=== PATIENT | male | born 1980 | race Two or more races ===

== ENCOUNTER 2022-01-28 16:00 | Inpatient (IN) | payer MEDICAID, OTHER ==
[~2022-01-28] VITALS: Ht 172.7 cm; Wt 52.2 kg
--- NOTE | 2022-01-28 16:01 | NUR ---
TO ER BED 7, MAXWELL Diaz FROM [facility],SUPPOSED TO GO TO [facility] BUT [facility] ARRIVED, BP WAS 80/60, FACILITY THEN CALLED 911, NONVERBAL, CONNECTED TO MONITOR, AWAITING MD ORDERS
--- NOTE | 2022-01-28 16:45 | NUR ---
COVID SWAB DONE AND SENT TO LAB
--- NOTE | 2022-01-28 16:45 | NUR ---
URINE COLLECTED AND SENT TO LAB
[2022-01-28] MEDS ORDERED: ASPI-1169 GT (17:23)
[2022-01-28] MEDS ORDERED: INSU100I4 SQ (17:23)
[2022-01-28] MEDS ORDERED: DOCU-141 GT (17:23)
[2022-01-28] MEDS ORDERED: PANT40TA49 PO (17:23)
[2022-01-28] MEDS ORDERED: ATOR20TA GT (17:23)
[2022-01-28] MEDS ORDERED: METO50TA16 GT (17:23)
[2022-01-28] MEDS ORDERED: CLOP75TA15 GT (17:23)
[2022-01-28] MEDS ORDERED: DIVA-78 GT ×2 (17:23)
[2022-01-28] MEDS ORDERED: LACT-209 GT (17:23)
[2022-01-28] MEDS ORDERED: MIDO5TAB4 GT (17:23)
[2022-01-28] MEDS ORDERED: POLY17PO4 GT (17:23)
[2022-01-28 17:33] LABS: BASOPHILS % (AUTO) 0.5 % (0.0-2.0); EOSINOPHILS % (AUTO) 1.1 % (0.0-6.0); HEMATOCRIT 34 % (39-51); HEMOGLOBIN 11.2 g/dL (13.5-17.5); LYMPHOCYTES # (AUTO) 1.6 K/uL (0.8-4.8); MEAN CORPUSCULAR HGB CONC 33 g/dl (31.0-36.0); MEAN CORPUSCULAR VOLUME 94 fL (80-96); MONOCYTES # (AUTO) 0.3 K/uL (0.1-1.30); MONOCYTES % (AUTO) 8.5 % (2.0-12.0); NEUTROPHILS # (AUTO) 1.9 K/uL (1.8-8.9); NEUTROPHILS % (AUTO) 48.9 % (43.0-81.0); PLATELET COUNT (AUTO) 128 K/uL (150-450); RED BLOOD CELL COUNT(AUTO) 3.65 MIL/uL (4.5-6.0); WHITE BLOOD COUNT (AUTO) 3.9 K/uL (4.3-11.0)
[2022-01-28 17:56] LABS: BILIRUBIN,URINE NEGATIVE (NEGATIVE); COLOR,URINE YELLOW (YELLOW); LEUKOCYTE ESTERASE ,URINE NEGATIVE (NEGATIVE); NITRITE, URINE NEGATIVE (NEGATIVE); PROTEIN,URINE TRACE mg/dl (NEGATIVE); UGLUCOSE NEGATIVE (NEGATIVE)
[2022-01-28 18:00] LABS: ALANINE AMINOTRANSFERASE 24 U/L (12-78); ALBUMIN 3.7 g/dL (3.4-5.0); ALKALINE PHOSPHATASE 62 U/L (46-116); ASPARTATE AMINOTRANSFERASE 19 U/L (15-37); BILIRUBIN,DIRECT 0.1 mg/dL (0.0-0.2); BILIRUBIN,TOTAL 0.2 mg/dL (0.2-1.0); CALCIUM, SERUM 9.3 mg/dL (8.5-10.1); CARBON DIOXIDE 29 mmol/L (21-32); CHLORIDE 105 mmol/L (98-107); GLUCOSE 82 mg/dL (74-106); POTASSIUM 4.4 mmol/L (3.5-5.1); SODIUM SERUM 140 mmol/L (136-145); UREA NITROGEN, BLOOD 19 mg/dL (7-18)
[2022-01-28] MEDS ORDERED: IV NS 0.9% 1,000 ML BAG IV ONE (18:00)
--- NOTE | 2022-01-28 18:05 | NUR ---
CALLED NURSE SUPV FOR MIDLINE INSERTION
[2022-01-28 18:10] LABS: BACTERIA,URINE 1+ /HPF (None Seen); MUCUS,URINE Many /LPF (None Seen); RBC,URINE 21-50 /HPF (0-2); WBC,URINE 0-2 /HPF (0-3)
--- NOTE | 2022-01-28 18:57 | NUR ---
RECEIVED A CALL FROM JOSE WATTS FROM [facility], NURSE TO NURSE REPORT GIVEN AND THEY PRINCESS SET UP A PE[facility] PE[facility]. [facility] [phone].
[2022-01-28] MEDS ORDERED: ONDANSETRON HCL/PF 4 MG/2 ML VIAL IVP PRN (20:30)
[2022-01-28] MEDS ORDERED: ACETAMINOPHEN 325 MG TABLET PO PRN (20:30)
[2022-01-28] MEDS ORDERED: MIDODRINE HCL (5MG) 5 MG TABLET GT PRN (21:00)
[2022-01-28] MEDS ORDERED: JEVITY 1.2 CAL 1,000 ML BOTTLE GT SCH (21:00)
[2022-01-28 21:22] LABS: THYROID STIMULATING HORMONE 1.685 uIU/mL (0.358-3.74)
--- NOTE | 2022-01-28 21:30 | NUR ---
ESTABLISHED. L HAND #20G S/L IVF NS INFUSING GTUBE INTACT. TOLERATING R/A WELL WITH NO SOB. RESP EVEN AND NON LABORED
--- NOTE | 2022-01-28 22:41 | NUR ---
REPORT GIVEN TO CORAL Bravo RN FOR [place]
--- NOTE | 2022-01-28 22:44 | NUR ---
NOTIFIED CONNOR (MOTHER) [phone] OF PT'S ADMISION AND CURRENT CONDITION.
--- NOTE | 2022-01-28 22:59 | NUR ---
[facility] SWAB COLLECTED AND SENT TO LAB. PT TRANSFERRRING TO 3 VIA HOSPITAL PROTOCOL. VSS. ALL BELONGINGS WITH PT.
[2022-01-28 23:00] VITALS: BP 122/80
[2022-01-28] MEDS: ENOXAPARIN SODIUM 40 MG/0.4 ML DISP.SYRIN SQ SCH (23:39)
[2022-01-28] MEDS: ATORVASTATIN 10 MG TABLET PO SCH (23:39)
[2022-01-28] MEDS: DIVALPROEX SODIUM 500 MG TABLET.DR PO SCH (23:40)
--- NOTE | 2022-01-29 02:39 | NUR ---
ADMISSION NOTE PATIENT ARRIVED IN UNIT AT EXACTLY 2300. ACCOMPANIED BY 1 ER PERSONNEL VIA STRETCHER. PATIENT NOTED TO BE NON-VERBAL BUT FOLLOWS COMMANDS AND ALERT. NO S/S OF APPARENT DISTRESS IN ROOM AIR. DENIES PAIN NOR DISCOMFORT. IV ON L. HAND #20G--STARTED ON NS @75MLS/HR. PATIENT FAILED NURSING SWALLOW EVAL FOR PATIENT UNABLE TO CLENCH TEETH. NOTED TO HAVE G-TUBE IN PLACE-- STARTED ON JEVITY 1.2 @55MLS/HR. PATIENT PUT FULL CODE FOR NOW, PATIENT WAY OF COMMUNICATING IS BY NODDING. NEW ID BAND ON PATIENT. BELONGINGS SIGNED FOR AND INVENTORIED. SAFETY IN PLACE. ADMISSION V/S FOLLOWS: 122/80, HR-62, RR-18, T-96.4, SATURATION 97% ON ROOM AIR. WILL FOLLOW THROUGH DOCTOR'S ORDERS.
[2022-01-29 06:21] LABS: BASOPHILS % (AUTO) 0.7 % (0.0-2.0); EOSINOPHILS % (AUTO) 3.6 % (0.0-6.0); HEMATOCRIT 34 % (39-51); HEMOGLOBIN 11.1 g/dL (13.5-17.5); LYMPHOCYTES # (AUTO) 2.4 K/uL (0.8-4.8); LYMPHOCYTES % (AUTO) 61.8 % (20.0-44.0); MEAN CORPUSCULAR HGB CONC 33 g/dl (31.0-36.0); MEAN CORPUSCULAR VOLUME 94 fL (80-96); MONOCYTES # (AUTO) 0.3 K/uL (0.1-1.30); MONOCYTES % (AUTO) 8.1 % (2.0-12.0); NEUTROPHILS % (AUTO) 25.8 % (43.0-81.0); PLATELET COUNT (AUTO) 112 K/uL (150-450); RED BLOOD CELL COUNT(AUTO) 3.57 MIL/uL (4.5-6.0); WHITE BLOOD COUNT (AUTO) 3.9 K/uL (4.3-11.0)
--- NOTE | 2022-01-29 06:28 | NUR ---
MS RN CLOSING NOTE PATIENT IN BED, ALERT, EYE OPENING, NON-VERBAL. NO S/S OF APPARENT DISTRESS IN ROOM AIR. DENIES PAIN AT THIS TIME. IV NS RUNNING @75MLS/HR. G-TUBE FEEDING JEVITY 1.2 RUNNING @55MLS/HR. ALL NEEDS ATTENDED. ALL SCHEDULED MEDICATIONS ADMINISTERED. SAFETY KEPT IN PLACE. WILL ENDORSE TO MORNING SHIFT RN FOR CONTINUITY OF CARE.
[2022-01-29 06:49] LABS: CALCIUM, SERUM 8.7 mg/dL (8.5-10.1); CREATININE 0.8 mg/dL (0.6-1.3); POTASSIUM 3.7 mmol/L (3.5-5.1)
--- NOTE | 2022-01-29 07:30 | NUR ---
MS RN OPENING NOTES RECEIVED PATIENT ON BED AWAKE AND NON-VERBAL. ON ROOM AIR TOLERATING WELL. NO SOB NOTED. NOT IN DISTRESS. WITH IV ACCESS AT THE LEFT HAND G20 WITH NS AT 75ML/HR INFUSING WELL. ON JEVITY 1.2 AT 55ML/HR VIA G-TUBE TOLERATING WELL. WITH NO COMPLAINTS OF PAIN AT THIS TIME. SAFETY MEASURES IN PLACED. CALL LIGHT WITHIN REACH. BED ON LOWEST LOCKED POSITION, SIDE RAILS UP X2. WILL CONTINUE TO MONITOR.
[2022-01-29] MEDS: POLYETHYLENE GLYCOL 3350 17 GM POWD.PACK GT SCH (08:15)
[2022-01-29] MEDS: DOCUSATE SODIUM 100 MG CAPSULE PO SCH ×2 (08:15→16:19)
[2022-01-29] MEDS: DIVALPROEX SODIUM 500 MG TABLET.DR PO SCH ×2 (08:15→21:34)
[2022-01-29] MEDS: PANTOPRAZOLE 40 MG TABLET.DR PO SCH (08:15)
[2022-01-29] MEDS: CLOPIDOGREL BISULFATE 75 MG TABLET GT SCH (08:16)
[2022-01-29] MEDS: ASPIRIN 81 MG TAB.CHEW GT SCH (08:16)
[2022-01-29] MEDS ORDERED: PANTOPRAZOLE 40 MG VIAL IV SCH (09:00)
[2022-01-29] MEDS: IV NS 0.9% 1,000 ML IV PRN ×2 (10:23)
[2022-01-29] MEDS ORDERED: MIDODRINE HCL (5MG) 5 MG TABLET GT PRN (12:30)
[2022-01-29 16:00] VITALS: BP 112/78
--- NOTE | 2022-01-29 18:27 | NUR ---
MS RN CLOSING NOTES PATIENT ON BED AWAKE, A/O X1 AND NON-VERBAL. ON ROOM AIR TOLERATING WELL. NO SOB NOTED. NOT IN DISTRESS. WITH IV ACCESS AT THE LEFT HAND G20 WITH NS AT 75ML/HR INFUSING WELL. ON JEVITY 1.2 AT 55ML/HR VIA G-TUBE TOLERATING WELL. WITH NO COMPLAINTS OF PAIN AT THIS TIME. DUE MEDS GIVEN. SAFETY MEASURES IN PLACED. CALL LIGHT WITHIN REACH. BED ON LOWEST LOCKED POSITION, SIDE RAILS UP X2. WILL ENDORSE TO NEXT SHIFT FOR [place].
--- NOTE | 2022-01-29 19:41 | NUR ---
MS RN OPENING NOTES RECEIVED PATIENT ON BED AWAKED NON VERBAL.ON ROOM AIR TOLERATING WELL. NO SOB/DISTRESS NOTED.WITH IV ACCESS AT THE LEFT HAND G20 WITH NS AT 75ML/HR INFUSING WELL. ON JEVITY 1.2 AT 55ML/HR VIA G-TUBE TOLERATING WELL.NO RESIDUAL NOTED. WITH NO COMPLAINTS OF PAIN AT THIS TIME. SAFETY MEASURES IN PLACED. CALL LIGHT WITHIN REACH. BED ON LOWEST LOCKED POSITION, SIDE RAILS UP X2. WILL CONTINUE TO MONITOR.
[2022-01-29] MEDS: ATORVASTATIN 10 MG TABLET PO SCH (21:35)
[2022-01-29] MEDS: ENOXAPARIN SODIUM 40 MG/0.4 ML DISP.SYRIN SQ SCH (21:36)
[2022-01-29] MEDS: JEVITY 1.2 CAL 1,000 ML BOTTLE GT SCH (21:43)
[2022-01-30 02:50] VITALS: BP 132/76
[2022-01-30] MEDS: IV NS 0.9% 1,000 ML IV PRN (05:27)
--- NOTE | 2022-01-30 07:30 | NUR ---
MS RN OPENING NOTES RECEIVED PATIENT IN BED AWAKE, NON-VERBAL, A/O X1, ABLE TO MAKE NEEDS KNOWN BY POINTING AND NODDING TO YES OR NO QUESTION. PT ON ROOM AIR TOLERATING WELL. NO SOB NOTED. NOT IN DISTRESS. WITH IV ACCESS AT THE LEFT HAND G20 WITH NS AT 75ML/HR INFUSING WELL. ON JEVITY 1.2 AT 55ML/HR VIA G-TUBE TOLERATING WELL. WITH NO COMPLAINTS OF PAIN AT THIS TIME. SAFETY MEASURES IN PLACED. CALL LIGHT WITHIN REACH. BED ON LOWEST LOCKED POSITION, SIDE RAILS UP X2. WILL CONTINUE TO MONITOR.
[2022-01-30 08:00] VITALS: BP_SYST 107; BP_SYST 120; BP_DIAS 58; BP_DIAS 85
[2022-01-30] MEDS: CLOPIDOGREL BISULFATE 75 MG TABLET GT SCH (09:04)
[2022-01-30] MEDS: PANTOPRAZOLE 40 MG TABLET.DR PO SCH (09:04)
[2022-01-30] MEDS: ASPIRIN 81 MG TAB.CHEW GT SCH (09:04)
[2022-01-30] MEDS: DIVALPROEX SODIUM 500 MG TABLET.DR PO SCH ×2 (09:04→21:36)
[2022-01-30] MEDS: POLYETHYLENE GLYCOL 3350 17 GM POWD.PACK GT SCH (09:04)
[2022-01-30] MEDS: DOCUSATE SODIUM 100 MG CAPSULE PO SCH ×2 (09:04→16:56)
[2022-01-30 16:00] VITALS: BP 115/82
[2022-01-30 16:06] LABS: IRON, SERUM 41 ug/dl (50-175); TOTAL IRON BINDING CAPACITY 318 ug/dl (250-450)
[2022-01-30 16:16] LABS: FERRITIN 124 ng/mL (8-388)
[2022-01-30 16:25] LABS: C-REACTIVE PROTEIN < 0.2 mg/dL (0.0-0.9)
--- NOTE | 2022-01-30 19:49 | NUR ---
MS RN CLOSING NOTES PATIENT IN BED AWAKE, NON-VERBAL, A/O X1, ABLE TO MAKE NEEDS KNOWN BY POINTING AND NODDING TO YES OR NO QUESTION. PT ON ROOM AIR TOLERATING WELL. NO SOB NOTED. NOT IN DISTRESS. WITH IV ACCESS AT THE LEFT HAND G20 WITH NS AT 75ML/HR INFUSING WELL. ON JEVITY 1.2 AT 55ML/HR VIA G-TUBE TOLERATING WELL. WITH NO COMPLAINTS OF PAIN AT THIS TIME. SAFETY MEASURES IN PLACED. CALL LIGHT WITHIN REACH. BED ON LOWEST LOCKED POSITION, SIDE RAILS UP X2, ENDORSED TO PM SHIFT.
[2022-01-30 20:12] VITALS: BP 138/86
[2022-01-30] MEDS: ENOXAPARIN SODIUM 40 MG/0.4 ML DISP.SYRIN SQ SCH (21:35)
[2022-01-30] MEDS: ATORVASTATIN 10 MG TABLET PO SCH (21:36)
[2022-01-31] MEDS: JEVITY 1.2 CAL 1,000 ML BOTTLE GT SCH (03:42)
--- NOTE | 2022-01-31 07:27 | NUR ---
MS RN OPENING NOTES RECEIVED PT IN BED AWAKE. A/O X1 AND NON-VERBAL. REORIENTED PT NEEDED. ON RA, TOLERATING WELL. NO SOB NOTED. NOT IN ANY SIGN OF RESPIRATORY DISTRESS. PT'S G-TUBE INTACT WITH FEEDING OF JEVITY 1.2 RUNNING AT 55ML/HR. SAFETY MEASURES IN PLACE: BED IN LOWEST AND LOCKED POSITION, SIDE RAILS UP X3, BED ALARM ON, AND CALL LIGHT WITHIN REACH. WILL CONTINUE TO MONITOR PT.
[2022-01-31 08:00] VITALS: BP 122/78
[2022-01-31] MEDS: CLOPIDOGREL BISULFATE 75 MG TABLET GT SCH (08:33)
[2022-01-31] MEDS: DOCUSATE SODIUM 100 MG CAPSULE PO SCH ×2 (08:33→17:29)
[2022-01-31] MEDS: PANTOPRAZOLE 40 MG TABLET.DR PO SCH (08:33)
[2022-01-31] MEDS: DIVALPROEX SODIUM 500 MG TABLET.DR PO SCH ×2 (08:33→21:03)
[2022-01-31] MEDS: POLYETHYLENE GLYCOL 3350 17 GM POWD.PACK GT SCH (08:33)
[2022-01-31] MEDS: ASPIRIN 81 MG TAB.CHEW GT SCH (08:34)
--- NOTE | 2022-01-31 09:50 | NUR ---
RN NOTE SEEN BY DR. DONALDSON WITH ORDERS TO DC NS IV FLUIDS.
[2022-01-31 11:33] LABS: BASOPHILS % (AUTO) 0.5 % (0.0-2.0); NEUTROPHILS % (AUTO) 40.1 % (43.0-81.0)
[2022-01-31 11:38] LABS: EOSINOPHILS % (AUTO) 3.7 % (0.0-6.0); HEMATOCRIT 36 % (39-51); LYMPHOCYTES # (AUTO) 1.9 K/uL (0.8-4.8); MEAN CORPUSCULAR HGB CONC 33 g/dl (31.0-36.0); MEAN CORPUSCULAR VOLUME 92 fL (80-96); MONOCYTES # (AUTO) 0.4 K/uL (0.1-1.30); MONOCYTES % (AUTO) 8.7 % (2.0-12.0); NEUTROPHILS # (AUTO) 1.6 K/uL (1.8-8.9); PLATELET COUNT (AUTO) 119 K/uL (150-450); RED BLOOD CELL COUNT(AUTO) 3.91 MIL/uL (4.5-6.0)
[2022-01-31 16:00] VITALS: BP 109/78
[2022-01-31] MEDS: FERROUS SULFATE (325 MG) 325 MG/TAB TABLET PO SCH (17:29)
--- NOTE | 2022-01-31 18:56 | NUR ---
MS RN CLOSING NOTES PT IN BED AWAKE. A/O X1 AND NON-VERBAL. PT ABLE TO MAKE NEEDS KNOWN BY NODDING YES OR NO AND ALSO BY POINTING TO THINGS HE NEEDS. ON RA, TOLERATING WELL. NO SOB NOTED. NOT IN ANY SIGN OF RESPIRATORY DISTRESS. PT'S G-TUBE INTACT WITH FEEDING OF JEVITY 1.2 RUNNING AT 55ML/HR. PT HAS NO IV ACCESS, MD AWARE. ALL NEEDS ATTENDED. KEPT CLEAN AND COMFORTABLE. SAFETY MEASURES IN PLACE: BED IN LOWEST AND LOCKED POSITION, SIDE RAILS UP X2, BED ALARM ON, KEPT HOB ELEVATED AT ALL TIMES AND CALL LIGHT WITHIN REACH. WILL ENDORSE TO BIOLOGY FACULTY MEMBER NURSE [place].
--- NOTE | 2022-01-31 19:26 | NUR ---
MS RN OPENING NOTES RECEIVED PATIENT ON BED AWAKED NON VERBAL.ON ROOM AIR TOLERATING WELL. NO SOB/DISTRESS NOTED.ON JEVITY 1.2 AT 55ML/HR VIA G-TUBE TOLERATING WELL.NO RESIDUAL NOTED. WITH NO COMPLAINTS OF PAIN AT THIS TIME. SAFETY MEASURES IN PLACED. CALL LIGHT WITHIN REACH. BED ON LOWEST LOCKED POSITION, SIDE RAILS UP X2. WILL CONTINUE TO MONITOR.
[2022-01-31 20:00] VITALS: BP 114/79
[2022-01-31] MEDS: ATORVASTATIN 10 MG TABLET PO SCH (21:03)
[2022-01-31] MEDS: ENOXAPARIN SODIUM 40 MG/0.4 ML DISP.SYRIN SQ SCH (21:06)
[2022-01-31 22:09] VITALS: BP 114/79
[2022-02-01 04:06] LABS: IMMUNOGLOBULIN A, SERUM 185 mg/dL (90-386); IMMUNOGLOBULIN G, SERUM 1491 mg/dL (603-1613)
--- NOTE | 2022-02-01 06:16 | NUR ---
MS RN CLOSING NOTES PATIENT ON BED AWAKED NON VERBAL BUT ABLE TO COMMUNICATE SIGN LANGUAGES.ON ROOM AIR TOLERATING WELL. NO SOB/DISTRESS NOTED.ON JEVITY 1.2 AT 55ML/HR VIA G-TUBE TOLERATING WELL.NO RESIDUAL NOTED. ALL DUE MEDS GIVEN ORDER.WITH NO COMPLAINTS OF PAIN AT THIS TIME. SAFETY MEASURES IN PLACED. CALL LIGHT WITHIN REACH. BED ON LOWEST LOCKED POSITION,WILL ENDORSED TO NEXT SHIFT.
[2022-02-01 07:07] LABS: *ANA ANTI-CENTROMERE B AB <0.2 AI (0.0-0.9); *ANA ANTI-DNA(DS) AB, QN <1 IU/mL (0-9); *ANA ANTI-JO-1 <0.2 AI (0.0-0.9); *ANA ANTICHROMATIN ANTIBODY <0.2 AI (0.0-0.9); *ANA RNP ANTIBODIES <0.2 AI (0.0-0.9); *ANA SJOGREN'S ANTI-SS-A <0.2 AI (0.0-0.9); *ANA SJOGREN'S ANTI-SS-B <0.2 AI (0.0-0.9); *ANAANTI-SCLERODERMA-70 AB <0.2 AI (0.0-0.9); *ANASMITH AB <0.2 AI (0.0-0.9)
--- NOTE | 2022-02-01 07:15 | NUR ---
MS RN OPENING NOTE: RECEIVED PATIENT SITTING IN CHAIR, AWAKE, AOX2. NON VERBAL, BUT ABLE TO COMMUNICATE SIMPLE NEEDS THROUGH SIGN LANGUAGE AND THROUGH NODDING WHEN ASKED QUESTIONS. ON ROOM AIR WITH NO SIGNS OF RESPIRATORY DISTRESS. G-TUBE IN PLACE ON LUQ OF THE ABDOMEN WITH JEVITY 1.2 RUNNING AT 55ML/HR, PATENT AND RUNNING WELL WITH NO RESIDUAL NOTED AT THIS TIME. PT. DOES NOT COMPLAIN OF PAIN AT THIS TIME. PT. ABLE TO AMBULATE TO THE BATHROOM INDEPENDENTLY. FALL, ASPIRATION AND SAFETY PRECAUTIONS IN PLACE: CALL LIGHT AND BELONGINGS WITHIN EASY REACH, HOB ELEVATED AT 30 DEGREES, BED ON LOWEST AND LOCKED POSITION, SIDE RAILS UP X2. WILL CONTINUE TO MONITOR.
[2022-02-01 08:00] VITALS: BP 101/74
[2022-02-01] MEDS: DOCUSATE SODIUM 100 MG CAPSULE PO SCH ×2 (09:20→17:20)
[2022-02-01] MEDS: PANTOPRAZOLE 40 MG/PACK PACK GT SCH (09:20)
[2022-02-01] MEDS: ASPIRIN 81 MG TAB.CHEW GT SCH (09:20)
[2022-02-01] MEDS: DIVALPROEX SODIUM 125 MG CAP.SPRINK GT SCH (09:20)
[2022-02-01] MEDS: FERROUS SULFATE (325 MG) 325 MG/TAB TABLET PO SCH ×2 (09:21→17:20)
[2022-02-01] MEDS: POLYETHYLENE GLYCOL 3350 17 GM POWD.PACK GT SCH (09:21)
[2022-02-01] MEDS: CLOPIDOGREL BISULFATE 75 MG TABLET GT SCH (09:21)
[2022-02-01 16:00] VITALS: BP 112/82
--- NOTE | 2022-02-01 18:53 | NUR ---
MS RN CLOSING NOTE: PATIENT REMAINS IN BED, WATCHING TV, AOX2. NON VERBAL, BUT ABLE TO COMMUNICATE SIMPLE NEEDS THROUGH SIGN LANGUAGE AND THROUGH NODDING WHEN ASKED QUESTIONS. STILL ON ROOM AIR. BREATHING EVEN AND UNLABORED. G-TUBE REMAINS IN PLACE ON LUQ OF THE ABDOMEN WITH JEVITY 1.2 RUNNING AT 55ML/HR, PATENT AND RUNNING WELL WITH A RESIDUAL OF 15ML NOTED AT THIS TIME. RESIDUAL INJECTED BACK TO PT. VOIDING CLEAR YELLOW URINE WELL AND HAD 1 NORMAL BM THIS SHIFT. SKIN INTACT. NO IV ACCESS. G-TUBE WAS FLUSHED EVERY 1-2 HRS WITH AT LEAST 60ML OF WATER. NO COMPLAINS OF PAIN AT THIS TIME. AMBULATES WITH BRP. FALL, ASPIRATION AND SAFETY PRECAUTIONS IN PLACE: CALL LIGHT AND BELONGINGS WITHIN EASY REACH, HOB ELEVATED AT 30 DEGREES, BED ON LOWEST AND LOCKED POSITION, SIDE RAILS UP X2. WILL ENDORSE CONTINUITY OF CARE TO NEW MEDIA STRATEGIST RN.
[2022-02-01 20:00] VITALS: BP 137/93
--- NOTE | 2022-02-01 20:00 | NUR ---
MS/TELE/RN PATIENT IS AWAKE, LYING IN BED, NO SIGNS OF DISTRESS NOTED, G TUBE FEEDING INFUSING, CALL LIGHT IN REACH, FALL PRECAUTIONS PER PROTOCOL IMPLEMENTED, WILL MONITOR.
[2022-02-01] MEDS ORDERED: DIVALPROEX SODIUM 125 MG CAP.SPRINK PO SCH (23:00)
[2022-02-01] MEDS: ATORVASTATIN 10 MG TABLET PO SCH (23:19)
[2022-02-01] MEDS: ENOXAPARIN SODIUM 40 MG/0.4 ML DISP.SYRIN SQ SCH (23:23)
[2022-02-01] MEDS: JEVITY 1.2 CAL 1,000 ML BOTTLE GT SCH (23:24)
--- NOTE | 2022-02-02 06:41 | NUR ---
MS/TELE/RN PATIENT IS AWAKE, ALERT, ORIENTED, NO C/O PAIN, NO SIGNS OF DISTRESS NOTED, ALL NEEDS ATTENDED AT THIS TIME, WILL CONTINUETO MONITOR
--- NOTE | 2022-02-02 07:25 | NUR ---
MS RN OPENING NOTES RECEIVED PT IN BED AWAKE. A/O X2 AND NON-VERBAL. REORIENTED PT NEEDED. PT IS AMBULATORY. ON RA, TOLERATING WELL. NO SOB NOTED. NOT IN ANY SIGN OF RESPIRATORY DISTRESS. PT'S G-TUBE IN PLACE WITH FEEDING OF JEVITY 1.2 RUNNING AT 55ML/HR. SAFETY MEASURES IN PLACE: BED IN LOWEST AND LOCKED POSITION, SIDE RAILS UP X3, BED ALARM ON, AND CALL LIGHT WITHIN REACH. WILL CONTINUE TO MONITOR PT.
[2022-02-02 08:00] VITALS: BP 111/78
[2022-02-02 08:13] LABS: BASOPHILS % (AUTO) 0.5 % (0.0-2.0); EOSINOPHILS % (AUTO) 4.6 % (0.0-6.0); HEMATOCRIT 38 % (39-51); HEMOGLOBIN 12.4 g/dL (13.5-17.5); LYMPHOCYTES # (AUTO) 2.5 K/uL (0.8-4.8); LYMPHOCYTES % (AUTO) 58.3 % (20.0-44.0); MEAN CORPUSCULAR HGB CONC 33 g/dl (31.0-36.0); MEAN CORPUSCULAR VOLUME 94 fL (80-96); MONOCYTES # (AUTO) 0.3 K/uL (0.1-1.30); NEUTROPHILS # (AUTO) 1.3 K/uL (1.8-8.9); NEUTROPHILS % (AUTO) 30.6 % (43.0-81.0); PLATELET COUNT (AUTO) 138 K/uL (150-450); RED BLOOD CELL COUNT(AUTO) 4.04 MIL/uL (4.5-6.0); WHITE BLOOD COUNT (AUTO) 4.2 K/uL (4.3-11.0)
[2022-02-02] MEDS: POLYETHYLENE GLYCOL 3350 17 GM POWD.PACK GT SCH (09:42)
[2022-02-02] MEDS: FERROUS SULFATE (325 MG) 325 MG/TAB TABLET PO SCH ×2 (09:42→16:20)
[2022-02-02] MEDS: CLOPIDOGREL BISULFATE 75 MG TABLET GT SCH (09:43)
[2022-02-02] MEDS: DOCUSATE SODIUM 100 MG CAPSULE PO SCH ×2 (09:43→16:20)
[2022-02-02] MEDS: ASPIRIN 81 MG TAB.CHEW GT SCH (09:43)
[2022-02-02] MEDS: PANTOPRAZOLE 40 MG/PACK PACK GT SCH (09:43)
[2022-02-02] MEDS: DIVALPROEX SODIUM 125 MG CAP.SPRINK GT SCH (09:43)
[2022-02-02 10:08] LABS: *SPE A/G RATIO 1.2 (0.7-1.7); *SPE ALPHA-1-GLOBULIN 0.2 g/dL (0.0-0.4); *SPE ALPHA-2-GLOBULIN 0.6 g/dL (0.4-1.0); *SPE M-SPIKE Not Observed g/dL (Not Observed)
[2022-02-02 16:07] VITALS: BP 116/86
--- NOTE | 2022-02-02 17:42 | NUR ---
ELEVATOR MECHANIC NOTES PT DISCHARGED TO [facility] IN STABLE CONDITION. PT A/O X2, ABLE MAKE NEEDS KNOWN BY NODDING HEAD OR POINTING AT OBJECTS THAT'S NEEDED. ON RA, TOLERATING WELL WITH SPO2 97%. BREATHING UNLABORED. NO SOB NOTED. NOT IN ANY SIGN OF RESPIRATORY DISTRESS. VITAL SIGNS TAKEN, STABLE, AND RECORDED. SKIN IS INTACT WITH NO SKIN ISSUES NOTED. ALL BELONGINGS ACCOUNTED FOR. DISCHARGED INSTRUCTIONS AND HEALTH TEACHINGS GIVEN TO PT. GTUBE IN PLACE AND INTACT. PT HAS NO IV ACCESS. PT LEFT THE UNIT AT 1730 AMBULATORY ACCOMPANIED BY JUDY TIRADO. PT IS PICKED UP BY [facility] WITH 2 SOLAR INSTALLATION TECHNICIAN. MD AND CHARGED NURSE AWARE OF DISCHARGED.
[2022-02-03 17:06] LABS: IMMUNOGLOBULIN M, SERUM 82 mg/dL (20-172)
== END 2022-02-02 17:31 | DRG 58 ==
LOC: ER 16:19 → TELE 22:52 → MED 23:17
PROVIDERS: ADMIT Nurse Practitioner Acute Care; ATTEND Internal Medicine
DX: I69.351 Hemiplegia and hemiparesis following cerebral infarction affecting right dominant side (principal); G93.49 Other encephalopathy; D61.818 Other pancytopenia; N17.9 Acute kidney failure, unspecified; D69.6 Thrombocytopenia, unspecified; D70.9 Neutropenia, unspecified; D50.9 Iron deficiency anemia, unspecified; F19.11 Other psychoactive substance abuse, in remission; I10 Essential (primary) hypertension; R13.10 Dysphagia, unspecified; Z20.822 Contact with and (suspected) exposure to COVID-19; I25.2 Old myocardial infarction; Z79.4 Long term (current) use of insulin; Z79.02 Long term (current) use of antithrombotics/antiplatelets; Z79.82 Long term (current) use of aspirin; Z93.1 Gastrostomy status; Z79.899 Other long term (current) drug therapy
CPT/HCPCS: 36415; 70450-TC; 71045-TC; 76700-TC; 80048-TC; 80061-TC; 80076-TC; 80164-TC; 81001; 82607-TC; 82728-TC; 82784; 83540-TC; 83735-TC; 84100-TC; 84155; 84165; 84443-TC; 84484-TC; 85025-TC; 85730-TC; 86140-TC; 86225; 86235; 86334; 86431-TC; 86706; 86803; 87040-TC; 87081-TC; 87340; C9803; G0378; J1650; J7030